=== PATIENT | male | born 1985 | race African-American/Black ===

== ENCOUNTER 2018-11-27 17:20 | Emergency (ER) | payer MEDICAID ==
[~2018-11-27] VITALS: Ht 172.7 cm; Wt 69.9 kg
--- NOTE | 2018-11-27 18:10 | NUR ---
SEEN AND EXAMINED BY EZEQUIEL HERRMANN
[2018-11-27] MEDS ORDERED: ACETAMINOPHEN ES 500 MG TABLET ONE (18:15)
[2018-11-27] MEDS ORDERED: ACETAMINOPHEN 325 MG TABLET PO ONE (18:30)
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
--- NOTE | 2018-11-27 19:24 | NUR ---
REPORT GIVEN TO ROHAN CABEZAS FOR EVE.
--- NOTE | 2018-11-27 19:30 | NUR ---
AT THE BED SIDE
--- NOTE | 2018-11-27 19:43 | NUR ---
Patient discharged to home in stable condition. Written and verbal after care instructions given. Patient verbalizes understanding of instruction.
[2018-11-27 19:45] VITALS: BP 129/74
== END 2018-11-27 19:46 | disposition home or self-care (01) ==
LOC: ER 17:28
DX: S63.592A Other specified sprain of left wrist, initial encounter (principal); G40.909 Epilepsy, unspecified, not intractable, without status epilepticus; V00.131A Fall from skateboard, initial encounter; Y93.51 Activity, roller skating (inline) and skateboarding; Y92.89 Other specified places as the place of occurrence of the external cause; Y99.8 Other external cause status
CPT/HCPCS: 73090-TC; 73110; 73130-TC

== ENCOUNTER 2019-02-17 02:50 | Emergency (ER) | payer OTHER ==
[~2019-02-17] VITALS: Ht 177.8 cm; Wt 80.3 kg
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
[2019-02-17] MEDS ORDERED: IBUPROFEN 600 MG TABLET PO ONE (05:01)
[2019-02-17] MEDS: IBUPROFEN 600 MG TABLET PO ONE (05:16)
--- NOTE | 2019-02-17 05:39 | NUR ---
BILATERAL WRIST WAS WRAPPED BY VIANEY BANDAGE PER PT'S REQUEST AND DR. ALVAREZ'S APPROVAL. Patient discharged to home in stable condition. Rx abnnd Written and verbal after care instructions given. Patient verbalized understanding of instruction and walked out w/ an steady gait.
[2019-02-17 05:42] VITALS: BP 118/75
== END 2019-02-17 05:43 | disposition home or self-care (01) ==
LOC: ER 02:50
DX: S60.222A Contusion of left hand, initial encounter (principal); S60.221A Contusion of right hand, initial encounter; G40.909 Epilepsy, unspecified, not intractable, without status epilepticus; F17.200 Nicotine dependence, unspecified, uncomplicated; V19.88XA Pedal cyclist (driver) (passenger) injured in other specified transport accidents, initial encounter; Y93.89 Activity, other specified; Y92.89 Other specified places as the place of occurrence of the external cause; Y99.8 Other external cause status
CPT/HCPCS: 73130-TC